=== PATIENT | female | born 2000 | race Caucasian/White ===

== ENCOUNTER 2025-05-07 14:43 | Outpatient (CLI) | payer OTHER | END 2025-05-07 14:44 | disposition home or self-care (01) | LOC: SCSRAD 14:43 | PROVIDERS: ATTEND Nurse Practitioner Family | DX: M54.50 Low back pain, unspecified (principal); M40.46 Postural lordosis, lumbar region; M47.816 Spondylosis without myelopathy or radiculopathy, lumbar region; M47.817 Spondylosis without myelopathy or radiculopathy, lumbosacral region | CPT/HCPCS: 72100 ==